=== PATIENT | female | born 1970 | race Hispanic/Latino ===

== ENCOUNTER → 2024-02-11 | Day surgery (SDC) | payer OTHER ==
[~2024-02-11] MED LIST: CASCARA SAGRADA1 ML PO; HYOSCYAMINE SULFATE 0.5 MG/ML INJ ONE; LIDOCAINE HCL 2% LOCAL INJ 5 ML SDV VIAL INJ ONE; MAGNESIUM OXID400 MG PO; MULTI-VITAMIN1 EACH PO; PROPOFOL IV EMULSION 10 MG/ML 20 ML VIAL ONE; PROPOFOL IV EMULSION 10 MG/ML 50 ML VIAL IV ONE; SIMETHICONE 40 MG/0.6 ML BTL ONE; TRAZODONE HCL50 MG PO
[2024-02-11] MEDS: LACTATED RINGER'S 1,000 ML ONE (06:44)
[2024-02-11 08:55] VITALS: TEMP 97.5
[2024-02-11 09:25] VITALS: BP 122/75; PULSE 64; RESP 15; O2SAT 98
== END | disposition home or self-care (01) ==
LOC: OR 05:00
PROVIDERS: ATTEND Internal Medicine Gastroenterology
DX: Z12.11 Encounter for screening for malignant neoplasm of colon (principal); K59.00 Constipation, unspecified; K63.89 Other specified diseases of intestine; K64.8 Other hemorrhoids; D64.9 Anemia, unspecified; E78.5 Hyperlipidemia, unspecified; R06.02 Shortness of breath; F41.9 Anxiety disorder, unspecified; F32.A Depression, unspecified; Z01.810 Encounter for preprocedural cardiovascular examination; Z79.899 Other long term (current) drug therapy
CPT/HCPCS: 36415; 45378; 84443; 93005; J1980; J2001; J2704 ×2; J7121